=== PATIENT | female | born 1995 | race Hispanic/Latino ===

== ENCOUNTER 2020-07-20 11:43 | Outpatient (CLI) | payer MEDICAID ==
[2020-07-20 12:28] LABS: Bacteria,Urine 1+ /HPF (Negative); Bilirubin,Urine NEG (Negative); Blood,Urine NEG (Negative); Calcium Oxalate Crystals,Urine 1+; Color,Urine Amber (Yellow); Mucus,Urine 3+ /HPF
[2020-07-20] MEDS ORDERED: LACTATED RINGERS 1,000 ML IV SCH (13:15)
[2020-07-20] MEDS ORDERED: HYDROcodone/ACETAMINOPHEN 5-325 MG TAB PO NR (13:53)
[2020-07-20 15:32] VITALS: BP 115/64
== END 2020-07-20 15:35 | disposition home or self-care (01) ==
LOC: TRG 11:43 → APU 11:44 → TRG 15:35
PROVIDERS: ATTEND Obstetrics & Gynecology
DX: O26.893 Other specified pregnancy related conditions, third trimester (principal); R10.30 Lower abdominal pain, unspecified; R10.2 Pelvic and perineal pain; O47.1 False labor at or after 37 completed weeks of gestation; Z3A.37 37 weeks gestation of pregnancy
CPT/HCPCS: 59025; 81001; 87086; 96360; 96361; J7120

== ENCOUNTER 2020-08-09 20:41 | Outpatient (CLI) | payer MEDICAID ==
[2020-08-09 21:09] VITALS: BP 126/60
== END 2020-08-09 23:23 | disposition home or self-care (01) ==
LOC: TRG 20:41 → APU 20:42 → TRG 23:23
PROVIDERS: ATTEND Obstetrics & Gynecology
DX: O47.1 False labor at or after 37 completed weeks of gestation (principal); Z3A.39 39 weeks gestation of pregnancy
CPT/HCPCS: 59025

== ENCOUNTER 2020-08-10 21:06 | Inpatient (IN) | payer MEDICAID, OTHER ==
[2020-08-10] MEDS ORDERED: LIDOCAINE (2%) 20 MG/1 ML VIAL 20 ML MDV INFILTRATI ONE (22:04)
[2020-08-10] MEDS ORDERED: TERBUTALINE 1 MG/1 ML INJ SUB-Q PRN (22:04)
[2020-08-10] MEDS ORDERED: MINERAL OIL 30 ML ORAL LIQD PO PRN (22:04)
[2020-08-10] MEDS ORDERED: ePHEDrine SULFATE 50 MG/1 ML INJ IV PRN (22:04)
[2020-08-10 22:21] LABS: Hematocrit 25.7 % (30.3-42.9); Hemoglobin 8.6 gm/dl (10.1-14.3); Mean Corpuscular HGB Conc 34 % (30-34); Mean Corpuscular Volume 81 fl (79-97); Platelet Count 301 K/mm3 (140-440); Red Blood Count 3.17 M/mm3 (3.65-5.03); Red Cell Distribution Width 15.3 % (13.2-15.2)
[2020-08-10] MEDS: BUTORPHANOL 2 MG/1 ML INJ IV PRN (22:31)
[2020-08-10] MEDS: LACTATED RINGERS 1,000 ML IV SCH (22:35)
[2020-08-10] MEDS ORDERED: OXYTOCIN DRIP 30 UNITS/500 ML BAG IV SCH (23:00)
[2020-08-11] MEDS ORDERED: ONDANSETRON 4 MG/2 ML INJ IV PRN ×2 (00:11→10:00)
[2020-08-11] MEDS ORDERED: diphenhydrAMINE 50 MG/ML VIAL IV PRN (00:11)
[2020-08-11] MEDS ORDERED: LACTATED RINGERS 250 ML IV SOLN IV ONE (00:11)
[2020-08-11] MEDS ORDERED: NalbUPHINE 10 MG/1 ML INJ IV PRN (00:11)
[2020-08-11] MEDS ORDERED: NALOXONE 2 MG/2 ML INJ IV PRN (00:11)
--- NOTE | 2020-08-11 00:39 | Anesthesia Consultation ---
Anesthesia Consult and Med Hx Date of service: 08/11/20 - Airway Anesthetic Teeth Evaluation: Good ROM Head & Neck: Adequate Mental/Hyoid Distance: Adequate Mallampati Class: Class II Intubation Access Assessment: Probably Good - Pulmonary Exam CTA: Yes - Cardiac Exam Cardiac Exam: RRR - Pre-Operative Health Status ASA Pre-Surgery Classification: ASA2 Proposed Anesthetic Plan: Epidural - Pulmonary Hx Smoking: No Hx Asthma: No Hx Respiratory Symptoms: No COPD: No Hx Pneumonia: No Hx Sleep Apnea: No - Cardiovascular System Hx Hypertension: No Hx Heart Attack/AMI: No Hx Angina: No - Central Nervous System Hx Neuromuscular Disorder: No Hx Seizures: No CVA: No Hx Psychiatric Problems: No - Gastrointestinal Hx Gastroesophageal Reflux Disease: No - Endocrine Hx Renal Disease: No Hx End Stage Renal Disease: No Hx Liver Disease: No Hx Insulin Dependent Diabetes: No Hx Non-Insulin Dependent Diabetes: No Hx Thyroid Disease: No Hx Hypothyroidism: No Hx Hyperthyroidism: No - Hematic Hx Anemia: No Hx Sickle Cell Disease: No - Other Systems Hx Alcohol Use: No Hx Obesity: No
--- NOTE | 2020-08-11 00:39 | Progress Note ---
Labor Epidural - Labor Epidural Start Time: 00:27 Stop Time: 00:35 Performed by:: GIA GRIER Procedure: Patient is requesting epidural for labor and pain. H&P, labs were reviewed. Patient IDed, H&P reviewed, all questions and concerns were answered, and consent was signed. Timeout was performed at bedside. Patient in sitting position. Sterile prep and drape was performed. 3ml of 1% lidocaine skin wheal at L[3]- L [4]. 18-gauge Tuohy epidural needle was advanced to loss of resistance with air technique 5cm. Negative CSF negative blood. Epidural catheter advanced to [11] centimeters. [negative] Aspiration [negative] test dose. Sterile dressing applied. Patient tolerated procedure.
[2020-08-11] MEDS ORDERED: fentaNYL-BUPIV 2 MCG/ML-0.125% 200 MCG/100 ML BAG EPIDURAL SCH (01:00)
[2020-08-11] MEDS: LACTATED RINGERS 1,000 ML IV SCH (04:19)
--- NOTE | 2020-08-11 08:29 | History and Physical Report ---
History of Present Illness Date of examination: 08/11/20 Date of admission: 08/10/20 21:06 Chief complaint: My fluid is low History of present illness: Pt is a 24 year old who presents for induction of labor secondary to oligohydramnios at 40 weeks gestation with EDC 08/10/2020. Pt has had an uncomplicated course with negative GBS. Past History Past Medical History: no pertinent history Past Surgical History: no surgical history Family/Genetic History: none Social history: - Obstetrical History Expected Date of Delivery: 08/10/20 Actual Gestation: 40 Week(s) 1 Day(s) : 3 Para: 1 Number of Living Children: 1 Medications and Allergies Allergies Allergy/AdvReac Type Severity Reaction Status Date / Time No Known Allergies Allergy Verified 03/14/18 10:06 Home Medications Medication Instructions Recorded Confirmed Last Taken Type Ferrous Sulfate 325 mg PO BID #30 tablet. 03/14/18 Unknown Rx Ibuprofen [Motrin] 600 mg PO Q8H PRN #30 tablet 03/14/18 Unknown Rx Active Meds: Active Medications Butorphanol Tartrate (Butorphanol 2 Mg/1 Ml Inj) 2 mg IV Q2H PRN PRN Reason: Pain , Severe (7-10) Last Admin: 08/10/20 22:31 Dose: 2 mg Documented by: Diphenhydramine HCl (Diphenhydramine 50 Mg/Ml Vial) 12.5 mg IV Q2H PRN PRN Reason: Itching Ephedrine Sulfate (Ephedrine Sulfate 50 Mg/1 Ml Inj) 10 mg IV Q2M PRN PRN Reason: Hypotension Oxytocin/Sodium Chloride (Pitocin/Ns 30 Unit/500ml) 30 units in 500 mls @ 2 mls/hr IV TITR DEYSI; Protocol Last Titration: 08/11/20 06:15 Dose: 4 mls/hr, 4 mls/hr Documented by: Lactated Ringer's (Lactated Ringers) 1,000 mls @ 125 mls/hr IV DIRECT DEYSI Last Admin: 08/11/20 04:19 Dose: 125 mls/hr Documented by: Fentanyl/Bupivacaine/Sodium Chlor (Fentanyl-Bupiv 2 Mcg/Ml-0.125%) 200 mcg in 100 mls @ 12 mls/hr EPIDURAL TITR DEYSI; Protocol Last Admin: 08/11/20 01:37 Dose: 12 mls/hr Documented by: Mineral Oil (Mineral Oil 30 Ml Oral Liqd) 30 ml PO QHS PRN PRN Reason: Constipation Nalbuphine HCl (Nalbuphine 10 Mg/1 Ml Inj) 2.5 mg IV Q2H PRN PRN Reason: Itching Naloxone HCl (Naloxone 2 Mg/2 Ml Inj) 0.2 mg IV Q5M PRN PRN Reason: Respiratory sedation Ondansetron HCl (Ondansetron 4 Mg/2 Ml Inj) 4 mg IV Q8H PRN PRN Reason: Nausea And Vomiting Terbutaline Sulfate (Terbutaline 1 Mg/1 Ml Inj) 0.25 mg SUB-Q ONCE PRN PRN Reason: Hyperstimulation/Hypertonicity Review of Systems All systems: negative Genitourinary: contractions, other (vaginal pressure) - Vital Signs Vital signs: Vital Signs Pulse BP Pulse Ox 99 H 126/67 95 08/10/20 21:33 08/10/20 21:33 08/10/20 21:33 Temp Pulse Resp BP Pulse Ox 97.7 F 83 18 132/79 100 08/11/20 03:23 08/11/20 07:59 08/11/20 01:57 08/11/20 07:49 08/11/20 07:59 - Physical Exam Breasts: Positive: deferred Cardiovascular: Regular rate, Normal S1, Normal S2 Lungs: Positive: Clear to auscultation, Normal air movement Abdomen: Positive: normal appearance, soft, normal bowel sounds. Negative: distention, tenderness Genitourinary (Female): Positive: normal external genitalia, normal perenium Vulva: both: normal Vagina: Positive: normal moisture. Negative: discharge Cervix: Negative: lesion, discharge Uterus: Positive: normal size, normal contour Adnexa: both: normal Anus/Rectum: Positive: normal perianal skin, heme negative. Negative: rectal mass, hemorrhoids Extremities: Deep Tendon Reflex Grade: Normal +2 - Obstetrical FHR: auscultation normal Cervical Dilatation: 1.5 Cervical Effacement Percentage: 50 station: -2 Uterine Contraction Frequency (min): 5 Uterine Contraction Pattern: Regular Uterine Tone Measurement Phase: Contraction Uterine Contraction Intensity: Moderate Results Result Diagrams: 08/10/20 21:46 Abnormal lab results 08/10/20 Range/Units 21:46 RBC 3.17 L (3.65-5.03) M/mm3 Hgb 8.6 L (10.1-14.3) gm/dl Hct 25.7 L (30.3-42.9) % MCH 27 L (28-32) pg RDW 15.3 H (13.2-15.2) % All other labs normal. Assessment and Plan IUP at 40 weeks or induction of labor secondary to oligohydramnios. Admit and begin pitocin. AROM when able. Anticipate .
--- NOTE | 2020-08-11 08:38 | Procedure Note ---
OB Delivery Note - Delivery Date of Delivery: 08/11/20 Surgeon: NIKIA MARES Estimated blood loss: 300cc - Vaginal Delivery presentation: vertex Delivery position: OA Intrapartum events: none Delivery induction: oxytocin Delivery monitor: external FHT, external uterine Route of delivery: Delivery placenta: spontaneous Delivery cord: 3 umbilical vessels Episiotomy: none Delivery laceration: none Anesthesia: epidural Delivery comments: Viable male delivered over intact perineum at 7:45 AM. Infant had spontaneous cry. was placed on maternal abdomen. Cord was clamped and cut when done pulsating. His weight was 8 pounds 15 ounces. Apgars were 8 and 9. Placenta was delivered spontaneously and intact with three-vessel cord. No lacerations were noted. There was excellent hemostasis at end of procedure. Patient tolerated procedure well. - A at 1 minute: 8 at 5 minutes: 9 Gender: Male (8 pounds 15 ounces)
[2020-08-11] MEDS: BUTORPHANOL 2 MG/1 ML INJ IV PRN (09:31)
[2020-08-11] MEDS: HYDROcodone/ACETAMINOPHEN 5-325 MG TAB PO PRN ×2 (09:46→16:59)
[2020-08-11] MEDS ORDERED: PRENATAL VIT27-FE FUMARATE-FOLIC ACID VIT TAB PO SCH (10:00)
[2020-08-11] MEDS ORDERED: PROMETHAZINE 25 MG RECT SUPP PR PRN (10:00)
[2020-08-11] MEDS ORDERED: LANOLIN/ZINC/DIMETHICONE (LANSINOH) 7 GM TP PRN (10:00)
[2020-08-11] MEDS ORDERED: WITCH HAZEL/ GLYCERIN PAD TP PRN (10:00)
[2020-08-11] MEDS ORDERED: PROMETHAZINE 25 MG TAB PO PRN (10:00)
[2020-08-11] MEDS ORDERED: diphenhydrAMINE 25 MG CAP PO PRN (10:00)
[2020-08-11] MEDS ORDERED: LACTATED RINGERS 1,000 ML ONE (10:31)
[2020-08-11] MEDS ORDERED: OXYTOCIN DRIP 30,000 MILLIUNITS/500 ML BAG IV ONE (10:41)
--- NOTE | 2020-08-11 10:43 | Post Anesthesia Evaluation ---
- Post Anesthesia Evaluation Patient Participated: Yes Airway Patent: Yes Stable Respiratory Function: Yes Nausea/Vomiting: No Temp > 96.8F: Yes Pain Manageable: Yes Adequeate Hydration: Yes Anesthesia Complications: No Block Receding Appropriately: Yes Patient on Ventilator: No
[2020-08-11] MEDS ORDERED: MORPHINE 2 MG/1 ML INJ IM SCH (11:00)
[2020-08-11] MEDS ORDERED: BUTORPHANOL 2 MG/1 ML INJ IV PRN ×2 (11:30→21:01)
[2020-08-11] MEDS ORDERED: METHYLERGONOVINE MALEATE 0.2 MG/ML VIAL IM SCH (11:30)
[2020-08-11] MEDS ORDERED: BUTORPHANOL 2 MG/1 ML INJ ONE (11:32)
[2020-08-11] MEDS ORDERED: LACTATED RINGERS 1,000 ML IV SCH (12:00)
[2020-08-11 12:33] LABS: Hemoglobin 7.8 gm/dl (10.1-14.3)
[2020-08-11] MEDS ORDERED: AMMONIA INHALANT IH ONE (12:50)
[2020-08-11] MEDS: FERROUS SULFATE 325 MG TAB PO SCH ×2 (14:45→20:14)
[2020-08-11] MEDS: IBUPROFEN 600 MG TAB PO SCH (16:10)
[2020-08-11 19:58] LABS: Hematocrit 22.1 % (30.3-42.9); Hemoglobin 7.5 gm/dl (10.1-14.3)
[2020-08-11] MEDS ORDERED: BUTORPHANOL 2 MG/1 ML INJ IV ONE (20:52)
--- NOTE | 2020-08-11 20:53 | Event Note ---
Date: 08/11/20 CTSP secondary to repeat complaints ofn 10/10 pain. Pt states pain is in uterus and lower back. Pt also had episodes of passing large clots earlier today, but her hgb is now stable at around 7.5. Pt reports only voiding small amounts of urine today in spite of significant urge to urinate. WIll begin ancef 1 gram for suspected uti.
[2020-08-11] MEDS: DOCUSATE SODIUM 100 MG CAP PO SCH (21:25)
[2020-08-11] MEDS: ceFAZolin/NS 1 GM/50 ML 1 GM/50 ML BAG IV SCH (21:25)
[2020-08-11] MEDS ORDERED: MAGNESIUM HYDROXIDE (MOM) ORAL LIQD UDC PO PRN (22:00)
[2020-08-12] MEDS: IBUPROFEN 600 MG TAB PO SCH ×2 (00:17→11:54)
[2020-08-12] MEDS: ceFAZolin/NS 1 GM/50 ML 1 GM/50 ML BAG IV SCH ×2 (05:27→13:08)
[2020-08-12] MEDS: DOCUSATE SODIUM 100 MG CAP PO SCH (09:28)
[2020-08-12] MEDS: FERROUS SULFATE 325 MG TAB PO SCH ×2 (09:28→13:08)
[2020-08-12] MEDS: HYDROcodone/ACETAMINOPHEN 5-325 MG TAB PO PRN (09:28)
--- NOTE | 2020-08-12 10:59 | Progress Note ---
Assessment and Plan PPD 1 s/p . Doing well. Subjective - Subjective Date of service: 08/12/20 Interval history: PPD 1 s/p sd. Now feeling much better. Pt has not been complaining of severe pain any longer since beginning antibiotics. Patient reports: appetite normal, voiding normally, pain well controlled, ambulating normally [place]: doing well Objective - Vital Signs Latest vital signs: Vital Signs Temp Pulse Resp BP BP Pulse Ox 08/12/20 08:22 97.9 F 95 H 18 107/57 96 08/12/20 05:17 18 08/12/20 00:27 98.1 F 84 20 106/53 94 08/12/20 00:17 18 08/11/20 20:15 18 08/11/20 16:00 98.5 F 87 20 113/64 95 08/11/20 11:40 87 107/66 96 08/11/20 11:25 97 H 117/66 08/11/20 11:05 116 H 136/69 Intake and Output 08/11/20 08/12/20 08/12/20 22:59 06:59 14:59 Intake Total 290 480 Output Total 900 Balance -610 480 Intake: IV 50 ANCEF/NS 1 GM/50 ML 1 gm 50 In 50 ml @ 100 mls/hr IV Q8H [facility] Rx#:[id number] Oral 240 480 Output: Urine 900 Void 900 Other: Total, Intake Amount 120 240 Total, Output Amount 400 # Voids Void 1 - Exam Breasts: Present: deferred Cardiovascular: Present: Regular rate, Normal S1, Normal S2 Lungs: Present: Clear to auscultation, Normal air movement Abdomen: Present: normal appearance, soft, normal bowel sounds Vulva: both: normal Uterus: Present: normal, firm Extremities: Present: normal - Labs Labs: Abnormal lab results 08/11/20 08/11/20 Range/Units 12:10 19:11 Hgb 7.8 L 7.5 L (10.1-14.3) gm/dl Hct 23.0 L 22.1 L (30.3-42.9) %
--- NOTE | 2020-08-12 11:02 | Discharge Summary ---
Providers - Providers Date of Admission: 08/10/20 21:06 Date of discharge: 08/12/20 Attending physician: NIKIA MARES Primary care physician: NIKIA MARES Hospitalization Reason for admission: induction of labor (for oligohydramnios) Delivery: Episiotomy: none Other procedures: none complications: none baby: male Hospital course: complicated by likely uti symptoms Condition at discharge: Good Disposition: DC-01 TO HOME OR SELFCARE Plan - Discharge Medications Prescriptions: Ibuprofen [Caldolor] 800 mg IV Q8HR #40 piggyback HYDROcodone/APAP 5-325 [[place] 5/325] 1 each PO Q6HR PRN #20 tablet PRN Reason: Pain - Provider Discharge Summary Activity: routine, no sex for 6 weeks, no heavy lifting 4 weeks, no strenuous exercise Diet: routine Instructions: routine Additional instructions: [] Smoking cessation referral if applicable(refer to patient education folder for contact #) [] Refer to [facility] Booklet Call your doctor immediately for: * Fever > 100.5 * Heavy vaginal bleeding ( >1 pad per hour) * Severe persistent headache * Shortness of breath * Reddened, hot, painful area to leg or breast * Drainage or odor from incision. * Keep incision clean and dry at all times and follow doctor's instructions regarding bathing/showering - Follow up plan Follow up: NIKIA MARES MD [Primary Care Provider] - 6 Weeks
[2020-08-12 14:28] VITALS: BP 104/59
== END 2020-08-12 14:40 | disposition home or self-care (01) | DRG 775 ==
LOC: LD 21:06 → OB 08-11 10:36
PROVIDERS: ADMIT Obstetrics & Gynecology; ATTEND Obstetrics & Gynecology
PROC: 3E033VJ Introduction of Other Hormone into Peripheral Vein, Percutaneous Approach (ICD-10-PCS; principal; 2020-08-11)
PROC: 10E0XZZ Delivery of Products of Conception, External Approach (ICD-10-PCS; 2020-08-11)
PROC: 00HU33Z Insertion of Infusion Device into Spinal Canal, Percutaneous Approach (ICD-10-PCS; 2020-08-11)
PROC: 3E0R3BZ Introduction of Anesthetic Agent into Spinal Canal, Percutaneous Approach (ICD-10-PCS; 2020-08-11)
DX: O41.03X0 Oligohydramnios, third trimester, not applicable or unspecified (principal); Z3A.40 40 weeks gestation of pregnancy; Z37.0 Single live birth; Z20.822 Contact with and (suspected) exposure to COVID-19
CPT/HCPCS: 36415; 59025; 85014; 85018; 85027; 85461; 86592; 86850; 86900; 86901; G0378; J0595; J0690; J2210; J2590; J2790; J7120; U0003